=== PATIENT | male | born 1985 | race Caucasian/White ===

== ENCOUNTER 2016-10-18 10:39 | Emergency (ER) | payer BC ==
[2016-10-18 11:30] LABS: BASOPHILS 0.4 % (0-2); EOSINOPHILS 0.2 % (0-7); HEMATOCRIT 42.1 % (42.0-54.0); HEMOGLOBIN 15.2 g/dL (13.5-17.5); IMMATURE GRANULOCYTES 0.2 % (0-5); LYMPHOCYTES 20.8 % (15-50); MCH 35.7 pg (26.0-34.0); MCHC 36.1 g/dL (31.0-37.0); MCV 98.8 fL (80.0-100.0); MONOCYTES 8.6 % (2-11); NEUTROPHILS 69.8 % (40-80); PLATELET COUNT 143 10x3/uL (130-400); RBC 4.26 10x6/uL (4.20-6.10); RDW 13.1 % (11.5-14.5)
[2016-10-18 11:58] LABS: ALBUMIN 3.9 g/dL (3.4-5.0); ALKALINE PHOSPHATASE 78 U/L (46-116); ALT (SGPT) 53 U/L (10-68); BILIRUBIN - TOTAL 0.36 mg/dL (0.2-1.3); CALC OSMOLALITY 273 mosm/kg (275-300); CALCIUM 8.4 mg/dL (8.5-10.1); CARBON DIOXIDE 24.9 mmol/L (21.0-32.0); CHLORIDE - SERUM 102 mmol/L (98-107); CREATININE - SERUM 0.8 mg/dL (0.6-1.3); GLUCOSE 88 mg/dL (74-106); LIPASE 186 U/L (73-393); POTASSIUM - SERUM 3.5 mmol/L (3.5-5.1); PROTEIN - SERUM 7.4 g/dL (6.4-8.2); SODIUM 138 mmol/L (136-145); UREA NITROGEN 9 mg/dL (7-18); eGFR NON AFRICAN AMERICAN > 90 mL/min (90-120)
[2016-10-18 12:03] LABS: APPEARANCE HAZY (CLEAR); BILIRUBIN NEGATIVE (NEGATIVE); COLOR DK YELLOW (YELLOW); GLUCOSE NEGATIVE (NEGATIVE); KETONE NEGATIVE (NEGATIVE); LEUKOCYTE ESTERASE NEGATIVE (NEGATIVE); NITRITE NEGATIVE (NEGATIVE); PROTEIN 1+ mg/dL (NEGATIVE)
[2016-10-18 12:07] LABS: BACTERIA FEW /hpf (NONE SEEN); EPITHELIAL CELLS OCC /hpf (0-5); RED CELLS - URINE 0-5 /hpf (0-5); WHITE CELLS - URINE OCC /hpf (0-5)
[2016-10-18 12:08] LABS: HYALINE CAST OCC /lpf (NONE SEEN); MUCUS >1+ /lpf (NONE SEEN)
== END 2016-10-18 15:26 | disposition home or self-care (01) ==
LOC: D.ER 10:39
PROVIDERS: Emergency Medicine
DX: K52.9 Noninfective gastroenteritis and colitis, unspecified (principal); F17.200 Nicotine dependence, unspecified, uncomplicated

== ENCOUNTER 2018-05-07 19:24 | Emergency (ER) | payer BC ==
[~2018-05-07] VITALS: Ht 172.7 cm; Wt 70.5 kg
[2018-05-07 19:29] VITALS: Ht 172.7 cm; Wt 70.5 kg
[2018-05-07 20:02] LABS: BASOPHILS 0.4 % (0-2); EOSINOPHILS 3.7 % (0-7); HEMATOCRIT 46.7 % (42.0-54.0); HEMOGLOBIN 16.8 g/dL (13.5-17.5); IMMATURE GRANULOCYTES 0.1 % (0-5); LYMPHOCYTES 22.3 % (15-50); MCH 31.2 pg (26.0-34.0); MCV 86.8 fL (80.0-100.0); MEAN PLATELET VOLUME 10.4 fL (7.4-10.4); MONOCYTES 4.8 % (2-11); NEUTROPHILS 68.7 % (40-80); RBC 5.38 10x6/uL (4.20-6.10); RDW 12.1 % (11.5-14.5); WBC 6.7 10x3/uL (4.8-10.8)
[2018-05-07 20:05] LABS: PLATELET COUNT 278 10x3/uL (130-400)
[2018-05-07 20:38] LABS: ALBUMIN 3.8 g/dL (3.4-5.0); ALKALINE PHOSPHATASE 102 U/L (46-116); ALT (SGPT) 48 U/L (10-68); BILIRUBIN - TOTAL 0.39 mg/dL (0.2-1.3); CALC OSMOLALITY 275 mosm/kg (275-300); CALCIUM 8.7 mg/dL (8.5-10.1); CARBON DIOXIDE 24.6 mmol/L (21.0-32.0); CHLORIDE - SERUM 101 mmol/L (98-107); GLUCOSE 84 mg/dL (74-106); LIPASE 86 U/L (73-393); POTASSIUM - SERUM 4.1 mmol/L (3.5-5.1); PROTEIN - SERUM 7.7 g/dL (6.4-8.2); SODIUM 138 mmol/L (136-145); UREA NITROGEN 14 mg/dL (7-18); eGFR NON AFRICAN AMERICAN > 90 mL/min (90-120)
[2018-05-07 20:50] LABS: APPEARANCE HAZY (CLEAR); BILIRUBIN NEGATIVE (NEGATIVE); COLOR YELLOW (YELLOW); GLUCOSE NEGATIVE (NEGATIVE); KETONE NEGATIVE (NEGATIVE); NITRITE NEGATIVE (NEGATIVE); PROTEIN 2+ mg/dL (NEGATIVE); SPECIFIC GRAVITY 1.025 (1.005-1.020); UROBILINOGEN NORMAL (NORMAL); WHITE CELLS - URINE 0-5 /hpf (0-5)
[2018-05-07 20:51] LABS: AMORPHOUS SEDIMENT <1+ /lpf (NONE SEEN); BACTERIA MANY /hpf (NONE SEEN); EPITHELIAL CELLS 0-5 /hpf (0-5); MUCUS >1+ /lpf (NONE SEEN); RED CELLS - URINE 25-50 /hpf (0-5)
[2018-05-07] MEDS ORDERED: HYDROCODON-ACE1 EA10 PO (22:55)
[2018-05-07] MEDS ORDERED: FLOMAX0.4 MG PO (22:55)
[2018-05-07] MEDS ORDERED: ZOFRAN ODT4 MG/UDTAB PO (22:55)
[2018-05-07 23:51] VITALS: BP 153/107
== END 2018-05-08 00:04 | disposition home or self-care (01) ==
LOC: D.ER 19:24
PROVIDERS: Family Medicine
DX: N20.0 Calculus of kidney (principal)

== ENCOUNTER 2018-08-27 21:22 | Emergency (ER) | payer OTHER ==
[~2018-08-27] VITALS: Ht 172.7 cm; Wt 68.2 kg
[~2018-08-27 21:22] MED LIST: FLOMAX0.4 MG PO; HYDROCODON-ACE1 EA10 PO; ZOFRAN ODT4 MG/UDTAB PO
[2018-08-27 21:33] VITALS: Ht 172.7 cm; Wt 68.2 kg
[2018-08-27 22:15] LABS: APPEARANCE CLEAR (CLEAR); BILIRUBIN NEGATIVE (NEGATIVE); COLOR YELLOW (YELLOW); GLUCOSE NEGATIVE (NEGATIVE); KETONE NEGATIVE (NEGATIVE); NITRITE NEGATIVE (NEGATIVE); PROTEIN NEGATIVE (NEGATIVE); SPECIFIC GRAVITY 1.025 (1.005-1.020); UROBILINOGEN NORMAL (NORMAL)
[2018-08-27] MEDS ORDERED: TORADOL10 MG PO (23:52)
[2018-08-28 00:15] VITALS: BP 142/95
== END 2018-08-28 00:16 | disposition home or self-care (01) ==
LOC: D.ER 21:22
PROVIDERS: Emergency Medicine
DX: N43.3 Hydrocele, unspecified (principal); N50.3 Cyst of epididymis

== ENCOUNTER 2018-09-15 06:00 | Day surgery (SDC) | payer OTHER ==
[2018-09-11 09:26] LABS: HEMATOCRIT 44.3 % (42.0-54.0); HEMOGLOBIN 15.9 g/dL (13.5-17.5); MCH 30.3 pg (26.0-34.0); MCHC 35.9 g/dL (31.0-37.0); MCV 84.4 fL (80.0-100.0); MEAN PLATELET VOLUME 9.8 fL (7.4-10.4); RBC 5.25 10x6/uL (4.20-6.10); RDW 11.8 % (11.5-14.5); WBC 5.5 10x3/uL (4.8-10.8)
[~2018-09-15] VITALS: Ht 170.2 cm; Wt 73.5 kg
[~2018-09-15 06:00] MED LIST changes: +TORADOL10 MG PO
[2018-09-15 06:14] VITALS: BP 137/96; Ht 170.2 cm; Wt 73.5 kg
[2018-09-15] MEDS ORDERED: HYDROCODON-ACE1 EAC7 PO (09:27)
[2018-09-15] MEDS ORDERED: FLOMAX0.4 MG PO (09:28)
[2018-09-15] MEDS ORDERED: FUROSEMIDE20 MG PO (09:28)
--- NOTE | 2018-09-15 12:26 | NUR ---
[id number] BRE[address] BERUMEN
== END 2018-09-15 12:20 | disposition home or self-care (01) ==
LOC: D.OPS 06:00 → D.PAN 08:00 → D.OPS 12:20
PROVIDERS: Anesthesiology; ATTEND Surgery
DX: K40.90 Unilateral inguinal hernia, without obstruction or gangrene, not specified as recurrent (principal)

== ENCOUNTER 2018-10-19 17:29 | Emergency (ER) | payer OTHER ==
[~2018-10-19] VITALS: Ht 170.2 cm; Wt 70.5 kg
[~2018-10-19 17:29] MED LIST changes: +FUROSEMIDE20 MG PO; +HYDROCODON-ACE1 EAC7 PO
[2018-10-19 17:34] VITALS: Ht 170.2 cm; Wt 70.5 kg
[2018-10-19] MEDS ORDERED: HYDROCODON-ACE1 EA10 PO (18:15)
[2018-10-19 18:21] VITALS: BP 136/88
== END 2018-10-19 18:22 | disposition home or self-care (01) ==
LOC: D.ER 17:29
DX: G89.18 Other acute postprocedural pain (principal)

== ENCOUNTER 2020-07-03 16:54 | Emergency (ER) | payer OTHER ==
[~2020-07-03] VITALS: Ht 170.2 cm; Wt 72.7 kg
[~2020-07-03 16:54] MED LIST changes: +BENTYL 20 MG TA20 MG PO; +NAPROSYN500 MG PO
[2020-07-03 16:56] VITALS: Ht 170.2 cm; Wt 72.7 kg
[2020-07-03 17:27] LABS: BASOPHILS 0.4 % (0-2); EOSINOPHILS 5.5 % (0-7); HEMATOCRIT 46.8 % (42.0-54.0); HEMOGLOBIN 16.5 g/dL (13.5-17.5); IMMATURE GRANULOCYTES 0.2 % (0-5); LYMPHOCYTE ABS# 1.55 10x3/uL (1.32-3.57); LYMPHOCYTES 30.3 % (15-50); MCH 30.7 pg (26.0-34.0); MCHC 35.3 g/dL (31.0-37.0); MCV 87.2 fL (80.0-100.0); MEAN PLATELET VOLUME 10.4 fL (7.4-10.4); MONOCYTES 9.8 % (2-11); NEUTROPHIL ABS# 2.76 10x3/uL (1.78-5.38); NEUTROPHILS 53.8 % (40-80); PLATELET COUNT 257 10x3/uL (130-400); RBC 5.37 10x6/uL (4.20-6.10); RDW 12.2 % (11.5-14.5); WBC 5.1 10x3/uL (4.8-10.8)
[2020-07-03 17:35] LABS: CALC OSMOLALITY 277 mosm/kg (275-300); CALCIUM 8.7 mg/dL (8.5-10.1); CARBON DIOXIDE 25.8 mmol/L (21.0-32.0); CHLORIDE - SERUM 102 mmol/L (98-107); CREATININE - SERUM 1.1 mg/dL (0.6-1.3); POTASSIUM - SERUM 3.7 mmol/L (3.5-5.1); SODIUM 138 mmol/L (136-145); UREA NITROGEN 14 mg/dL (7-18); eGFR NON AFRICAN AMERICAN 81 mL/min (90-120)
[2020-07-03 17:38] LABS: GLUCOSE 123 mg/dL (74-106)
[2020-07-03 17:43] LABS: ALBUMIN 3.7 g/dL (3.4-5.0); ALKALINE PHOSPHATASE 94 U/L (30-120); ALT (SGPT) 51 U/L (10-68); AMYLASE - SERUM 56 U/L (25-115); BILIRUBIN - TOTAL 0.28 mg/dL (0.2-1.3); LIPASE 97 U/L (73-393); PROTEIN - SERUM 7.2 g/dL (6.4-8.2)
[2020-07-03 17:44] LABS: TROPONIN-I < 0.017 ng/mL (0.000-0.060)
[2020-07-03 19:03] LABS: BILIRUBIN NEGATIVE (NEGATIVE); KETONE NEGATIVE (NEGATIVE); NITRITE NEGATIVE (NEGATIVE); UROBILINOGEN NORMAL mg/dL (< 2)
[2020-07-03 20:42] VITALS: BP 139/98
== END 2020-07-03 20:42 | disposition home or self-care (01) ==
LOC: D.ER 16:54
PROVIDERS: Family Medicine
DX: R10.32 Left lower quadrant pain (principal); K59.00 Constipation, unspecified